=== PATIENT | female | born 1935 | race Hispanic/Latino ===

== ENCOUNTER 2017-12-28 09:36 | Observation (INO) | payer OTHER ==
[~2017-12-28] VITALS: Ht 154.9 cm; Wt 65.1 kg
[2017-12-28 10:22] LABS: APPEARANCE,URINE Clear (CLEAR); BILIRUBIN,URINE Negative (NEGATIVE); COLOR,URINE Yellow (YELLOW); GLUCOSE, URINE (UA) Negative (NEGATIVE); KETONES,URINE Negative (NEGATIVE); LEUKOCYTE ESTERASE ,URINE Negative (NEGATIVE); NITRATE,URINE Negative (NEGATIVE); OCCULT BLOOD,URINE Moderate (NEGATIVE); PROTEIN,URINE Negative (NEGATIVE); UROBILINOGEN,URINE 0.2 mg/dL (0.2-1.0)
[2017-12-28 10:51] LABS: BASOPHILS % (AUTO) 0.4 % (0.0-5.0); EOSINOPHILS % (AUTO) 0.1 % (0.0-8.0); HEMATOCRIT 38.9 % (36-48); LYMPHOCYTES % (AUTO) 7.9 % (21.0-51.0); MEAN CORPUSCULAR HEMOGLOBIN 31.8 pg (27.0-33.0); MEAN CORPUSCULAR HGB CONC 33.9 g/dL (32.0-36.0); MEAN CORPUSCULAR VOLUME 93.7 fL (79-99); MONOCYTES % (AUTO) 3.4 % (3.0-13.0); NEUTROPHILS % (AUTO) 88.2 % (40.0-77.0); PLATELET COUNT (AUTO) 166 K/uL (130-400); RED BLOOD CELL COUNT(AUTO) 4.15 MIL/uL (4.00-5.50); RED CELL DISTRIBUTION WIDTH 13.7 % (11.0-15.5); WHITE BLOOD COUNT (AUTO) 11.7 K/uL (4.8-10.8)
[2017-12-28 11:00] LABS: CREATININE 1.2 mg/dL (0.5-1.5); POTASSIUM 3.6 mmol/L (3.5-5.1)
[2017-12-28 11:22] LABS: B-TYPE NATRIURETIC PEPTIDE 267 pg/mL (0-100)
[2017-12-28 11:23] LABS: ALBUMIN 4.3 g/dL (3.5-5.0); BILIRUBIN,TOTAL 1.1 mg/dL (0.2-1.0); TOTAL PROTEIN, SERUM 8.6 g/dL (6.0-8.3)
[2017-12-28 11:36] LABS: BACTERIA,URINE None Seen /HPF (None Seen); SQUAMOUS EPITHELIAL CELL,UR Rare /HPF (0-2); WBC,URINE None Seen /HPF (0-1)
[2017-12-28 12:03] LABS: AMPHET/METH SCREEN,URINE NEGATIVE (NEGATIVE); BARBITURATE SCREEN, URINE NEGATIVE (NEGATIVE); BENZODIAZEPINES SCREEN,URINE NEGATIVE (NEGATIVE); CANNABINOID SCREEN,URINE NEGATIVE (NEGATIVE); COCAINE SCREEN,URINE NEGATIVE (NEGATIVE); OPIATE SCREEN,URINE NEGATIVE (NEGATIVE); PHENCYCLIDINE SCREEN,URINE NEGATIVE (NEGATIVE)
[2017-12-28 12:12] LABS: INR 1.08 (0.85-1.15); PARTIAL THROMBOPLASTIN TIME 23.1 SEC (26.3-35.5); PROTHROMBIN TIME 11.3 SEC (9.6-11.6)
[2017-12-28] MEDS ORDERED: 1/2 NORMAL SALINE 1,000 ML IV ONE (15:15)
[2017-12-28] MEDS ORDERED: LABETALOL HCL 5 MG/ML 20ML VIAL IV ONE (16:03)
[2017-12-28] MEDS ORDERED: LABETALOL HCL 5 MG/ML 20ML VIAL IV PRN (18:15)
[2017-12-28] MEDS: 1/2 NORMAL SALINE 1,000 ML IV SCH (18:20)
[2017-12-28] MEDS ORDERED: MELO-108 PO (18:42)
[2017-12-28] MEDS ORDERED: PROP60CA2 PO (18:42)
[2017-12-28] MEDS ORDERED: LEVO50 PO (18:42)
[2017-12-28] MEDS ORDERED: ALEN70TA47 PO (18:42)
[2017-12-28] MEDS ORDERED: ATOR40TA69 PO (18:42)
[2017-12-28] MEDS ORDERED: ESCI20TA36 PO (18:42)
[2017-12-28 20:00] VITALS: BP 171/82
[2017-12-28 20:59] LABS: APPEARANCE,URINE Clear (CLEAR); BILIRUBIN,URINE Negative (NEGATIVE); COLOR,URINE Yellow (YELLOW); GLUCOSE, URINE (UA) Negative (NEGATIVE); KETONES,URINE 15 mg/dL (NEGATIVE); LEUKOCYTE ESTERASE ,URINE Negative (NEGATIVE); NITRATE,URINE Negative (NEGATIVE); OCCULT BLOOD,URINE Small (NEGATIVE); PH,URINE 6.5 (5.0-8.0); PROTEIN,URINE POS 1+ (NEGATIVE); UROBILINOGEN,URINE 0.2 mg/dL (0.2-1.0)
[2017-12-28 21:08] LABS: BACTERIA,URINE None Seen /HPF (None Seen); WBC,URINE 0-1 /HPF (0-1)
[2017-12-28 21:09] LABS: SQUAMOUS EPITHELIAL CELL,UR 0-2 /HPF (0-2)
[2017-12-28] MEDS: CEFTRIAXONE SODIUM 2 GM VIAL IVP SCH (22:20)
[2017-12-29] VITALS (7 sets, daily range): BP systolic 108–142; BP diastolic 55–74
[2017-12-29] MEDS: ALENDRONATE SODIUM 35 MG TAB PO SCH (06:30)
[2017-12-29] MEDS: LEVOTHYROXINE 50 MCG TABLET PO SCH (06:40)
[2017-12-29] MEDS: MELOXICAM 7.5 MG TABLET PO SCH (09:00)
[2017-12-29] MEDS: PROPRANOLOL HCL 20 MG TAB PO SCH (09:00)
[2017-12-29] MEDS: CITALOPRAM 20 MG TABLET PO SCH (09:00)
[2017-12-29] MEDS: 1/2 NORMAL SALINE 1,000 ML IV SCH (12:59)
[2017-12-29] MEDS ORDERED: CLON2TAB11 PO (13:09)
[2017-12-29] MEDS: ATORVASTATIN CALCIUM 40 MG TABLET PO SCH (21:00)
[2017-12-29] MEDS ORDERED: CLONAZEPAM 2 MG TABLET PO SCH (21:00)
[2017-12-29] MEDS: CEFTRIAXONE SODIUM 2 GM VIAL IVP SCH (21:28)
[2017-12-30 03:36] VITALS: BP 106/70
[2017-12-30] MEDS: 1/2 NORMAL SALINE 1,000 ML IV SCH (05:15)
[2017-12-30 06:19] LABS: HEMATOCRIT 30.8 % (36-48); MEAN CORPUSCULAR HEMOGLOBIN 32.4 pg (27.0-33.0); MEAN CORPUSCULAR HGB CONC 35.1 g/dL (32.0-36.0); MEAN CORPUSCULAR VOLUME 92.4 fL (79-99); PLATELET COUNT (AUTO) 134 K/uL (130-400); RED BLOOD CELL COUNT(AUTO) 3.34 MIL/uL (4.00-5.50); RED CELL DISTRIBUTION WIDTH 14.1 % (11.0-15.5); WHITE BLOOD COUNT (AUTO) 8.2 K/uL (4.8-10.8)
[2017-12-30 06:40] LABS: ALBUMIN 3.1 g/dL (3.5-5.0); BILIRUBIN,TOTAL 0.6 mg/dL (0.2-1.0); CREATININE 1.3 mg/dL (0.5-1.5); POTASSIUM 3.1 mmol/L (3.5-5.1); TOTAL PROTEIN, SERUM 6.4 g/dL (6.0-8.3)
[2017-12-30 07:00] VITALS: BP 155/80
[2017-12-30 07:28] LABS: LYMPHOCYTES % (MANUAL) 7 % (22-44); MONOCYTES % (MANUAL) 2 % (2-9); SEGMENTED NEUTROPHILS % 91 % (40-70)
[2017-12-30 07:30] LABS: MAN.DIFF COMMENT-IMPRESSION MANUAL DIFFERENTIAL; PLATELET MORPHOLOGY COMMENT ADEQUATE
[2017-12-30] MEDS: LEVOTHYROXINE 50 MCG TABLET PO SCH (08:59)
[2017-12-30] MEDS: PROPRANOLOL HCL 20 MG TAB PO SCH (09:01)
[2017-12-30] MEDS: MELOXICAM 7.5 MG TABLET PO SCH (09:02)
[2017-12-30] MEDS: CITALOPRAM 20 MG TABLET PO SCH (09:02)
[2017-12-30 11:00] VITALS: BP 168/76
[2017-12-30] MEDS ORDERED: POTASSIUM CHLORIDE 10% ELIXIR 20 MEQ/15 ML UDCUP PO SCH (15:00)
[2017-12-30 16:00] VITALS: BP 144/61
[2017-12-30 20:00] VITALS: BP 156/81
[2017-12-30] MEDS: ATORVASTATIN CALCIUM 40 MG TABLET PO SCH (20:09)
[2017-12-30] MEDS: CEFTRIAXONE SODIUM 2 GM VIAL IVP SCH (20:09)
[2017-12-30] MEDS ORDERED: CLONAZEPAM 2 MG TABLET PO SCH (21:00)
[2017-12-31 00:12] VITALS: BP 146/66
[2017-12-31] MEDS: 1/2 NORMAL SALINE 1,000 ML IV SCH ×2 (01:22→05:20)
[2017-12-31 04:00] VITALS: BP 136/60
[2017-12-31] MEDS: ALENDRONATE SODIUM 35 MG TAB PO SCH (06:00)
[2017-12-31] MEDS: LEVOTHYROXINE 50 MCG TABLET PO SCH (06:00)
[2017-12-31 07:00] VITALS: BP 144/70
[2017-12-31] MEDS: PROPRANOLOL HCL 20 MG TAB PO SCH (09:00)
[2017-12-31] MEDS: CITALOPRAM 20 MG TABLET PO SCH (09:00)
[2017-12-31 11:00] VITALS: BP 130/57
[2017-12-31 16:00] VITALS: BP 148/60
== END 2017-12-31 17:58 ==
LOC: EDH 09:36 → EDHIP 14:12 → 3CH 17:26
PROVIDERS: ADMIT Internal Medicine; ATTEND Internal Medicine
DX: N39.0 Urinary tract infection, site not specified (principal); R51 Headache; F03.90 Unspecified dementia, unspecified severity, without behavioral disturbance, psychotic disturbance, mood disturbance, and anxiety; F05 Delirium due to known physiological condition; E03.9 Hypothyroidism, unspecified; E78.5 Hyperlipidemia, unspecified; I10 Essential (primary) hypertension; I25.10 Atherosclerotic heart disease of native coronary artery without angina pectoris; I48.91 Unspecified atrial fibrillation; R63.6 Underweight; F20.9 Schizophrenia, unspecified; F32.9 Major depressive disorder, single episode, unspecified; F60.7 Dependent personality disorder; Z90.49 Acquired absence of other specified parts of digestive tract; Z90.710 Acquired absence of both cervix and uterus; Z79.899 Other long term (current) drug therapy; R41.82 Altered mental status, unspecified; D72.829 Elevated white blood cell count, unspecified; Z79.01 Long term (current) use of anticoagulants
CPT/HCPCS: 36415 ×2; 70450; 71045; 72125; 72170; 80053 ×2; 80305; 81001; 82550; 83880; 84484; 85025 ×2; 85610; 85730; 87088; 92610 ×4; 93005; 96361 ×4; 96374; 96376 ×2; 97039; 97116 ×3; 97161; 99285; A4344; A4510; G0378 ×76; G8978; G8979; G8980; G8981; G8982; G8983; J0696 ×3; J3490

== ENCOUNTER 2018-11-19 10:25 | Outpatient (CLI) | payer MEDICARE ==
[~2018-11-19 10:25] MED LIST: ALEN70TA10 PO; ATOR40TA69 PO; CLON2TAB11 PO; LEVO50 PO; MELO-108 PO; PROP60CA2 PO
[2018-11-19] MEDS ORDERED: LIDOCAINE/PRILOCAINE CREAM 5GM TUBE TP ONE (10:26)
[2018-11-19 14:22] VITALS: BP 141/71
== END 2018-11-19 17:00 | disposition designated cancer center or children's hospital (05) ==
LOC: WHH 10:25
PROVIDERS: ATTEND Podiatrist Foot & Ankle Surgery
DX: L97.511 Non-pressure chronic ulcer of other part of right foot limited to breakdown of skin (principal); F31.9 Bipolar disorder, unspecified; L60.0 Ingrowing nail; E78.5 Hyperlipidemia, unspecified; E03.9 Hypothyroidism, unspecified; I25.10 Atherosclerotic heart disease of native coronary artery without angina pectoris; I10 Essential (primary) hypertension; I48.91 Unspecified atrial fibrillation; F03.90 Unspecified dementia, unspecified severity, without behavioral disturbance, psychotic disturbance, mood disturbance, and anxiety; Z79.899 Other long term (current) drug therapy; Z79.01 Long term (current) use of anticoagulants; Z90.710 Acquired absence of both cervix and uterus; Z90.49 Acquired absence of other specified parts of digestive tract
CPT/HCPCS: 11730; G0463; J3490

== ENCOUNTER → 2021-01-25 | Outpatient (CLI) | payer MEDICARE ==
[~2021-01-25] MED LIST changes: -ALEN70TA10 PO; +ALEN70TA80 PO
== END | disposition home or self-care (01) ==
LOC: SHCH 07:36
PROVIDERS: ATTEND Internal Medicine Cardiovascular Disease
DX: Z01.810 Encounter for preprocedural cardiovascular examination (principal); I11.9 Hypertensive heart disease without heart failure; E78.5 Hyperlipidemia, unspecified; E66.9 Obesity, unspecified
CPT/HCPCS: 93306; 93356